=== PATIENT | female | born 1975 | race Caucasian/White ===

== ENCOUNTER 2023-09-25 10:18 | Emergency (ER) | payer OTHER, SELFPAY ==
[2023-09-25 10:19] VITALS: BP 118/79; PULSE 120; RESP 22; O2SAT 97
[2023-09-25 10:20] VITALS: BP 124/86; PULSE 109; RESP 22; TEMP 37.2; O2SAT 97; BMI 18.4
--- NOTE | 2023-09-25 10:50 | EKG12_ITS ---
Test Reason : SYNCOPE Blood Pressure : / mmHG Vent. Rate : 094 BPM Atrial Rate : 094 BPM P-R Int : 112 ms QRS Dur : 072 ms QT Int : 348 ms P-R-T Axes : 074 090 072 degrees QTc Int : 435 ms Normal sinus rhythm Rightward axis Borderline ECG Confirmed by ANANYA BARNES, ANASTASIA ([id number]), book or script editor BERNARDA GARNER ([id number]) on 09/27/2023 8:27:53 AM Referred By: Confirmed By:ANASTASIA HARE MD
--- NOTE | 2023-09-25 10:52 | EDS_ITS ---
HPI History of Present Illness Chief Complaint: Syncope Informant: patient and spouse/S.O. Onset/Context/Timing Onset: Yesterday Context: Gradual Onset Timing: Continuous Current Severity: Mild Maximum Severity: Mild Narrative Narrative: 48-year-old female no seen past medical or surgical history. Has had URI symptoms for about a week. Laryngitis. They are currently moving from [place] to [place]. They are staying with a friend or family member. Complaining of laryngitis. Yesterday felt weak and had a syncopal episode when walking to the bathroom. Denies any injuries. Also a strong smelling urine. But denies dysuria. No cardiac history. No vomiting. No diarrhea or melena. Prior similar symptoms: No Recent Illness/Hospitalization: No PFSH PFSH Medical History no medical history no medical history Home Medications ?Medication ?Instructions ?Recorded ?Last Taken ?Type sulfamethoxazole 800 1 tab PO BID 5 days #10 tabs 09/25/23 Unknown Rx mg-trimethoprim 160 mg tablet (Bactrim DS) Allergy/AdvReac Type Severity Reaction Status Date / Time No Known Allergies Allergy Verified 09/25/23 10:19 Surgical History no surgical history no surgical history Social History Smoking Status: Current every day smoker tobacco type: cigarettes ROS ROS ED ROS Narrative URI symptoms. Laryngitis. Syncopal event. Decreased appetite. Review of Systems ROS Unobtainable: Denies due to encephalopathy Constitutional Constitutional ED: Reports chills; Denies fever(s) Eyes Eyes: Denies blurry vision ENT ENT ED: Denies ear pain Cardiovascular Cardiovascular: Denies chest pain Respiratory/Chest Respiratory/Chest: Reports cough Gastrointestinal Gastrointestinal: Reports nausea; Denies abdominal pain, constipation, diarrhea, melena or vomiting Genitourinary Genitourinary ED: Denies dysuria, hematuria or urinary frequency Musculoskeletal Musculoskeletal: Denies arthralgias, back pain or myalgias Integumentary Denies abscess Neurologic Neurologic: Denies headache(s) Psychiatric Psychiatric: Denies anxiety Endocrine Endocrinology: Denies cold intolerance Hematologic/Lymphatic Hematologic/Lymphatic: Reports none Allergic/Immunologic Allergic/Immunologic ED: Denies mouth swelling, tongue swelling or urticaria EXAM Physical Exam Narrative Exam Narrative: Well-appearing 48-year-old female vital signs are stable afebrile. Pulse ox 97% on room air no hypoxia. H EENT exam pupils round react light. No signs of trauma to her face or scalp. Nontender. Moist mucous membranes. Posterior pharynx unremarkable. Neck nontender no lymphadenopathy. Lungs clear to auscultation bilaterally. Heart tachycardic rate of 115 no murmur. Chest wall and ribs nontender. Abdomen soft nontender. Moving all 4 extremities. Nontender. No edema. No cords. Neurologically she is awake alert no focal motor deficits. Back nontender. Const Vital Signs: 09/25/23 10:19 09/25/23 10:19 09/25/23 10:20 Temperature 99 F Temperature Source Temporal Pulse Rate 120 H 109 H Respiratory Rate 22 H 22 H Respiratory Effort Short of Breath Respiratory Pattern Normal Blood Pressure 118/79 124/86 H Blood Pressure Mean 92 98 Pulse Ox 97 97 Oxygen Delivery Method Room Air Room Air 09/25/23 10:50 Temperature Temperature Source Pulse Rate Respiratory Rate Respiratory Effort Respiratory Pattern Blood Pressure Blood Pressure Mean Pulse Ox Oxygen Delivery Method Room Air Positive well nourished and well developed; Negative for obese, cachectic, contractures or unkempt General Appearance ED: well developed and NAD; Negative for unkempt, cachectic, contractures, cyanotic, diaphoretic or pallor Nutritional Appearance: Negative for cachectic or obese HEENT Reports moist mucous membranes; Denies dry mucous membranes Negative for trauma or tenderness Mouth ED: No dry mucous membranes Mouth: No dry mucous membranes Eyes PERRL and EOMs intact bilaterally General Eye ED: Negative for pale conjunctiva or scleral icterus Neck no lymphadenopathy, supple and no JVD General: Negative for tenderness Lymph Lymphatic: Negative for other Chest Wall inspection of chest normal and palpation of chest normal Chest: Negative for other Resp normal respiratory effort and clear to auscultation bilaterally Effort and Inspection: Negative for retractions Auscultation: Negative for rales, rhonchi, wheezes or diminished lung sounds Cardio regular rhythm, S1 normal heart sound, S2 normal heart sound and no murmurs; Negative for regular rate Rate: tachycardic GI normal to inspection, nondistended, normoactive bowel sounds, non-tender, non- distended and no masses Inspection: Negative for abdominal distention Auscultation: normoactive bowel sounds Palpation: soft; Negative for tender, guarding or rebound tenderness present Back/Spine no CVA tenderness General Back: Negative for CVA tenderness Cervical Spine: Negative for cervical spine tenderness Thoracic Spine / Upper Back: Negative for thoracic spinal tenderness or paraspinal muscle tenderness Lumbar Spine / Lower Back: Negative for lumbar spinal tenderness Extremity normal to inspection General Extremety ED: Negative for edema or tenderness General Extremity: Negative for edema Neuro oriented x3 and CN's II-XII intact bilaterally Sensorium / Orientation: alert; Negative for orientation impaired, lethargic or stuporous Motor Exam: strength 5/5 throughout Psych mental status grossly normal Appearance: Negative for unkempt or other Attitude: No agitated Mood & Affect: Negative for depressed, anxious or tearful Skin General Skin Exam: elasticity normal; Negative for jaundice or pallor Lesions: No lesion noted Rashes: No rashes noted Trauma: Negative for abrasion Wounds: Negative for wounds noted MDM MDM MDM Narrative Medical decision making narrative: 48-year-old female no seen past medical history URI symptoms for about a week may or may not have COVID or viral syndrome. Had a syncopal episode yesterday. Exam benign. Cardiac workup along with COVID and flu. IV fluids. Repeat exam patient is doing well at 12:33 PM. She be started on Bactrim twice daily for 5 days for UTI. Treated otherwise for respiratory viral syndrome. Follow-up as needed. History & Record Review Discussion w/independent historian: Patient Additional record(s) reviewed:: No prior records Lab Data Attestation: I reviewed the patient's lab results. 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 H&H 13 and 39. Platelets 239. Chemistries show a gap of 7. Normal BUN 15 creatinine 0.7. Glucose 115. Troponin less than 3. COVID, flu and RSV negative. Chest x-ray normal. Urinalysis positive for infection. Positive nitrates. 25- 50 white cells and 3+ bacteria. Labs: Laboratory Results - last 24 hr 09/25/23 09/25/23 11:00 11:40 WBC 15.7 H RBC 4.50 Hgb 13.3 Hct 39.5 MCV 87.8 MCH 29.6 MCHC 33.7 RDW Std Deviation 45.1 H RDW Coeff of Kayy 14.0 Plt Count 239 MPV 10.9 Immature Gran % (Auto) 0.700 Neut % (Auto) 84.1 H Lymph % (Auto) 4.3 L [place] % (Auto) 10.5 H Eos % (Auto) 0.1 Baso % (Auto) 0.3 Absolute Neuts (auto) 13.2 H Absolute Lymphs (auto) 0.68 L Nucleated RBC % 0 Differential Comment COMMENT Diff Path Review May foll Sodium 136 Potassium 3.6 Chloride 106 Carbon Dioxide 23.0 Anion Gap 7 BUN 15 Creatinine 0.79 Estim Creat Clear Calc 75.75 Est GFR (MDRD) Af Amer 99 Est GFR (MDRD) Non-Af 82 BUN/Creatinine Ratio 18.9 Glucose 115 H Calcium 9.0 Troponin I High Sens < 3 L Urine Color Yellow Urine Clarity Sl. Cloudy Urine pH 6.5 Ur Specific [place] 1.010 Urine Protein 30 H Urine Glucose (UA) Normal Urine Ketones 15 H Urine Occult Blood 50 H Urine Nitrite Positive H Urine Bilirubin Negative Urine Urobilinogen 4 H Ur Leukocyte Esterase 500 H Urine RBC 0-5 SEEN Urine WBC 25-50 SEEN Ur Squamous Epith Cells 0-5 SEEN Ur Transition Epith Cell 0-5 SEEN Ur Renal Epithelial Cell 0-5 SEEN Amorphous Sediment 2+ Urine Bacteria 3+ Urine Mucus 0 SEEN Radiography Chest X-Ray - ED: 1 View, Read by ED Physician, Heart, Lungs, Mediastinum, Bony Structures, No Acute Disease and Chronic Changes Diagnostic Testing: Clinical Impression(s) from Imaging Studies Chest X-Ray 09/25/23 11:07 IMPRESSION: Normal x-ray examination of the chest. Electronically Signed: Fercho Gibson MD at 11:30 EDT Reading Location ID and State: [facility] / [place] , Service support , Chest x-ray, portable, single view interpreted both by myself and the radiologist shows no acute abnormality. Normal cardiac silhouette. Normal lung caballero. Rhythm Strip Rhythm Strip: Sinus Rhythm Rate: 94 Ectopy: None EKG Initial EKG: Attestation: I personally reviewed and interpreted this EKG as follows: Interpretation: Sinus Rhythm and No Acute Injury Pattern Comments: Normal sinus rhythm rate of 94 no acute signs of SC or ischemia. No dysrhythmia. Prior EKG tracings: not available for review Prior: No Prior Discharge Plan Triage Chief Complaint: Syncope ED Provider: Iván Singleton Dx/Rx/DC Orders Clinical Impression: UTI (urinary tract infection), Viral URI, Syncope Instructions: Urinary Tract Infections in Women, ED URI, Viral, No Abx (Adult) Prescriptions: New sulfamethoxazole-trimethoprim [Bactrim DS] 800-160 mg tablet 1 tab PO BID 5 Days Qty: 10 0RF Primary Care Provider: Care Physician,No Primary Referrals: Kobe Lopez MD [Med Staff - Sales Leader] - 1 Week if not improving Care Physician,No Primary [Primary Care Provider] - Activity Restrictions/Additional Instructions: Plenty of fluids and rest. Antibiotic Bactrim 1 pill twice a day for the next 5 days to treat your urinary tract infection. Follow-up if not improving or return if worse. Print Language: Danish Disposition Disposition: Home, Self Care
[2023-09-25] MEDS: 0.9% Normal Saline (1000mL) 1,000 ML 999 ML IV (11:01)
--- NOTE | 2023-09-25 11:07 | RAD_ITS ---
STUDY: X-RAY CHEST REASON FOR EXAM: Female, 48 years old. Chest pain TECHNIQUE: Single AP portable view of the chest. COMPARISON: None. FINDINGS: The lungs are clear and expanded. There is no demonstrated pleural abnormality. Normal size heart. Normal mediastinum and yeny. Normal visualized pulmonary arteries. Normal visualized aortic arch and descending thoracic aorta. Normal visualized thoracic spine. Normal visualized ribs, clavicles, and shoulders. There is no demonstrated abnormality of the visualized soft tissue structures of the upper abdomen. RAD/Chest 1 View (Portable) IMPRESSION: Normal x-ray examination of the chest. Electronically Signed: Fercho Gibson MD at 11:30 EDT ,
[2023-09-25] MEDS: Aspirin 81 MG TAB.CHEW 324 MG PO (11:13)
[2023-09-25 11:14] LABS: Absolute Lymphocyte Count 0.68 X10^3/uL (0.83-4.51); Absolute Neutrophil Count 13.2 X10^3/uL (2.0-7.7); Basophil# 0.05 X10^3/uL; Basophil% 0.3 % (0-1); Eosinophil# 0.01 X10^3/uL; Eosinophils% 0.1 % (0-5); Hematocrit 39.5 % (37-47); Hemoglobin 13.3 g/dL (12.0-15.0); Lymphocyte # 0.68 X10^3/ul (0.83-4.51); Lymphocyte % 4.3 % (19-41); Mean Corp Hgb Conc 33.7 g/dL (32-36); Mean Corpuscular Hgb 29.6 pg (27.0-32.0); Mean Corpuscular Volume 87.8 fL (81-99); Mean Platelet Vol. 10.9 fl (6.2-12.0); Monocyte# 1.65 X10^3/uL; Monocyte% 10.5 % (0-10); NRBC Flagged by Analyzer 0 % (0-5); Neutrophil # 13.15 X10^3/uL (2.7-7.7); Neutrophil % 84.1 % (47-70); POSITIVE DIFFERENTIAL YES; Platelet Count 239 K/mm3 (150-450); RBC Distribution Width SD 45.1 fl (35.1-43.9); White Blood Count 15.7 K/mm3 (4.4-11.0)
[2023-09-25 11:17] LABS: Differential Indicated SCAN CRITERIA MET
[2023-09-25 11:32] LABS: Anion Gap 7 (5-15); BUN 15 mg/dL (7-18); BUN/Creat Ratio 18.9 RATIO (10-20); Chloride 106 mmol/L (98-107); Creatinine, Serum 0.79 mg/dL (0.55-1.02); EST Glomerular Filtration Rate 82 mL/min (>60); Est Glom Filt Rate - Afr Amer 99 mL/min (>60); Estimated Creatinine Clearance 75.75 ml/min; Glucose 115 mg/dL (74-106); Potassium 3.6 mmol/L (3.5-5.1); Sodium Level 136 mmol/L (136-145); Troponin-I HS (w/2H Reflex) < 3 pg/mL (3.0-54.0)
[2023-09-25 11:46] LABS: Mucous, Urine 0 SEEN /hpf (<or=2+)
[2023-09-25 11:51] LABS: Color, Urine Yellow (Yellow); Glucose, Dipstick Normal (Normal); Ketone-Dipstick 15 mg/dl (Negative); Leukocyte Esterase-Dipstick 500 /ul (Negative); Nitrite-Dipstick Positive (Negative); Occult Blood-Urine 50 /ul (Negative); Protein-Dipstick 30 mg/dl (Negative); Urine Bilirubin Dipstick Negative (Negative); Urine Clarity Sl. Cloudy (Clear); Urine Urobilinogen 4 mg/dl (Normal); Urine pH 6.5 (5.0 - 8.0)
[2023-09-25 12:04] LABS: Red Blood Cells-Urine 0-5 SEEN /hpf (0-5); Squamous Epithelial Cells - UA 0-5 SEEN /hpf (5-10); White Blood Cells 25-50 SEEN /hpf (0-5)
[2023-09-25 12:05] LABS: Amorphous Sediment 2+; Bacteria 3+ /hpf (None Seen); Renal Epithelial Cells 0-5 SEEN /hpf (0-5); Transitional Epithelial - Ur 0-5 SEEN /hpf (0-5)
[2023-09-25 12:19] VITALS: BP 120/56; PULSE 88
[2023-09-25] MEDS: Smz/Tmp Ds Tablet 1 TABLET PO (12:47)
[2023-09-25 12:52] VITALS: BP 106/70; PULSE 89; RESP 16; TEMP 36.6; O2SAT 99
[2023-09-25 13:10] LABS: Reflex Troponin-HS? (from REC) Y
[2023-09-26 15:24] LABS: Pathologist Review Reviewed
== END 2023-09-25 13:00 | disposition home or self-care (01) ==
PROVIDERS: Emergency Provider Emergency Medicine; Visit Provider Emergency Medicine
DX: N39.0 Urinary tract infection, site not specified (principal); J06.9 Acute upper respiratory infection, unspecified; R55 Syncope and collapse; F17.210 Nicotine dependence, cigarettes, uncomplicated
CPT/HCPCS: 71045; 80048; 81001; 84484; 85025; 87631; 93005; 96360; 99283; J7030

== ENCOUNTER 2024-07-24 07:22 | Emergency (ER) | payer OTHER, SELFPAY ==
[2024-07-24 07:22] VITALS: BP 130/71; PULSE 75; RESP 22; TEMP 37.2; O2SAT 100; BMI 20.4
--- NOTE | 2024-07-24 07:51 | RAD_ITS ---
PROCEDURE: CHEST PA AND LATERAL 07/24/2024 REASON FOR EXAM: COUGH TECHNIQUE: Frontal and lateral views of the chest. COMPARISON: September 25, 2023 FINDINGS: Heart size and mediastinal configuration are within normal limits. There is no focal infiltrate or consolidation. There is no pneumothorax or effusion. There is no visible acute bony abnormality. There is no visible atherosclerosis. RAD/Chest PA and Lateral IMPRESSION: No acute process is identified in the chest. Reading Location: [facility]
--- NOTE | 2024-07-24 08:10 | EX.ED.DYSGE1 ---
HPI History of Present Illness Chief Complaint: Cold Sx Informant: patient Narrative Narrative: Patient is a 49-year-old female with history of tobacco use denies any significant past medical history presenting with URI symptoms. Patient dates 2 weeks ago she had a cold and was feeling better but her symptoms came back 2 days ago. She is a start with a headache and nausea as well as runny nose. Yesterday her voice became hoarse and she started to feel achy all over. She notes she has had discomfort in the center of her chest that goes to her shoulder blades. She has been more winded. Does feel short of breath talking because she is having to push the air through her throat to make sound. Has associated chills. States her cough has been nonproductive and she is taking Mucinex this morning. 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 Denies any vomiting or diarrhea. Denies any rash. Does smoke cigarettes. Came in for further evaluation and states she also needs a work note. PFSH [facility] Home Medications ?Medication ?Instructions ?Recorded ?Last Taken ?Type sulfamethoxazole 800 1 tab PO BID 5 days #10 tabs 09/25/23 Unknown Rx mg-trimethoprim 160 mg tablet (Bactrim DS) Allergy/AdvReac Type Severity Reaction Status Date / Time No Known Allergies Allergy Verified 07/24/24 07:23 Social History Smoking Status: Current every day smoker tobacco type: cigarettes ROS ROS ED Constitutional Constitutional ED: Denies chills or fever(s) ENT ENT ED: Reports rhinorrhea, sore throat and other Details: Denies sharp ear pain but does have associated ear congestion and pressure Cardiovascular Cardiovascular: Denies chest pain Respiratory/Chest Respiratory/Chest: Reports cough and dyspnea; Denies sputum Gastrointestinal Gastrointestinal: Reports nausea; Denies abdominal pain, diarrhea or vomiting Musculoskeletal Musculoskeletal: Reports back pain and myalgias Integumentary Denies rash Neurologic Neurologic: Reports headache(s); Denies paresthesias or weakness EXAM Physical Exam Const Vital Signs: 07/24/24 07:22 07/24/24 09:53 07/24/24 09:53 Temperature 99 F Temperature Source Temporal Pulse Rate 75 79 Respiratory Rate 22 H 18 Respiratory Effort Normal Respiratory Pattern Normal Blood Pressure 130/71 H Blood Pressure Mean 90 Pulse Ox 100 98 Oxygen Delivery Method Room Air Positive well nourished and well developed General Appearance ED: well developed HEENT Reports TM's clear and moist mucous membranes HEENT Narrative: Mild injection of the dependent membranes with no air-fluid level fullness. Yeah easily visualization of the osseous structures. Normal ear canals. No significant nasal congestion present. Injection/irritation of the posterior oropharynx and uvula. Uvula is midline with no edema appreciated. Normal tonsils with no edema or exudate present. Mild submental lymphadenopathy present. Hoarse voice consistent with laryngitis. No stridor appreciated. Tympanic Membrane ED: Yes TM's clear Eyes PERRL and EOMs intact bilaterally Neck supple Neck Narrative: Normal range of motion of the neck Chest Wall inspection of chest normal and palpation of chest normal Resp normal respiratory effort and clear to auscultation bilaterally Auscultation: Negative for wheezes or diminished lung sounds Cardio regular rate, regular rhythm and no murmurs GI normal to inspection, nondistended, normoactive bowel sounds and non-tender Extremity normal to inspection General Extremety ED: Negative for edema General Extremity: Negative for edema Neuro oriented x3 Sensorium / Orientation: alert Motor Exam: Negative for general weakness Psych mental status grossly normal Skin no rashes or lesions noted and no wounds MDM MDM MDM Narrative Medical decision making narrative: Patient evaluated for 2 days of recurrent URI symptoms. Vital signs largely normal. Physical exam most consistent with viral syndrome and she has some injection of her oropharynx and laryngitis on exam. Given that she was sick 2 weeks ago with another URI will obtain chest x-ray to ensure she has not developed secondary pneumonia in the setting of her myalgias. She is otherwise healthy low utility for viral testing at this time. Physical exam not consistent with strep pharyngitis and do not think she requires strep swabbing. 2 view chest x-ray viewed by myself does not show any acute process. Patient be treated symptomatically for viral syndrome. Given a work note for today and tomorrow. Discussed continued alternating ibuprofen with Tylenol cold and flu and Mucinex. Given return precautions. Encouraged follow-up with primary care doctor. Radiography Diagnostic Testing: Clinical Impression(s) from Imaging Studies Chest X-Ray 07/24/24 07:51 IMPRESSION: No acute process is identified in the chest. Reading Location: [facility] Discharge Plan Triage Chief Complaint: Cold Sx ED Provider: Dot Turk Dx/Rx/DC Orders Clinical Impression: Acute viral syndrome, Cough Instructions: ED URI, Viral, No Abx (Adult) Prescriptions: No Action sulfamethoxazole-trimethoprim [Bactrim DS] 800-160 mg tablet 1 tab PO BID 5 Days Qty: 10 0RF Stand Alone Forms: ED Work / School Excuse Primary Care Provider: Care Physician,No Primary Referrals: Care Physician,Mary Primary [Primary Care Provider] - [facility] [Non-Staff] - Activity Restrictions/Additional Instructions: Avoid smoking. Drink plenty of fluids. Take [id number] cough and cold medicine including twice a day Mucinex. Alternate ibuprofen or Tylenol for body aches. If you are here worsening please return to the emergency room. If you feel that you need it you may use the albuterol inhaler/nebulizer at home (every 4-6 hours as needed for shortness of breath, cough or wheezing). Print Language: Icelandic Disposition Disposition: Home, Self Care
[2024-07-24 09:53] VITALS: PULSE 79; RESP 18; O2SAT 98
[2024-07-24 10:27] VITALS: BP 133/84; PULSE 87; RESP 16; TEMP 36.4; O2SAT 98
== END 2024-07-24 10:28 | disposition home or self-care (01) ==
PROVIDERS: Emergency Provider Emergency Medicine; Visit Provider Emergency Medicine
DX: B34.9 Viral infection, unspecified (principal); F17.210 Nicotine dependence, cigarettes, uncomplicated; R05.9 Cough, unspecified
CPT/HCPCS: 71046; 99282

== ENCOUNTER 2024-11-28 15:30 | Emergency (ER) | payer OTHER, SELFPAY ==
[2024-11-28 15:30] VITALS: BP 124/82; PULSE 73; RESP 16; TEMP 36.9; O2SAT 95; BMI 20.2
--- NOTE | 2024-11-28 16:24 | ED.VIS.DENTA ---
HPI History of Present Illness Chief Complaint: Dental Narrative Narrative: 49-year-old female presents wanting stronger antibiotics and stronger ibuprofen for dental pain that she has had for the last week. She states she is awaiting for her dental insurance to kick in to actually see a dentist. She has had problems with her teeth previously. She has numerous carious teeth but she is complaining of pain in the upper 4 front teeth mainly. She is a smoker. She denies any fevers or chills, no exacerbating or alleviating factors. PFSH PFSH Home Medications ?Medication ?Instructions ?Recorded ?Last Taken ?Type clindamycin HCl 300 mg capsule 300 mg PO Q6H #40 CAPSULES 11/28/24 Unknown Rx (Cleocin HCl) ibuprofen 800 mg tablet 800 mg PO Q8H PRN pain #20 tabs 11/28/24 Unknown Rx Allergy/AdvReac Type Severity Reaction Status Date / Time No Known Allergies Allergy Verified 11/28/24 15:33 Social History Smoking Status: Current every day smoker tobacco type: cigarettes ROS ROS ED ROS Narrative Review of systems positive for dental pain in the upper jaw mainly the for front teeth. No fevers or chills, tender to touch, no facial swelling or redness. No difficulty swallowing. EXAM Physical Exam Narrative Exam Narrative: Afebrile. Vital signs noted. Nontoxic-appearing. Focused examination of the mouth does show numerous dental caries mainly in the 4 front teeth. There is mild swelling of the gingiva, but no fluctuant abscess. No swelling of the face or erythema of the upper lip. Airway patent. No drooling or trismus. Const Vital Signs: 11/28/24 15:30 Temperature 98.5 F Temperature Source Oral Pulse Rate 73 Respiratory Rate 16 Blood Pressure 124/82 H Blood Pressure Mean 96 Pulse Ox 95 MDM MDM MDM Narrative Medical decision making narrative: Patient states that she is here for antibiotics, and higher strength ibuprofen. I wrote her prescription for ibuprofen 800 to take 3 times a day #20 and for clindamycin 4 times a day for the next 10 days. Smoking cessation was discussed. I do not feel that she has a gingival abscess that requires drainage. She will follow-up with a dentist to soon as possible. Return instructions to the emergency department were reviewed. Disposition is discharged home in stable condition. History & Record Review Additional record(s) reviewed:: Prior ED visit (Noncontributory to current chief complaint) Discharge Plan Triage Chief Complaint: Dental ED Provider: Jose Fink Dx/Rx/DC Orders Clinical Impression: Pain, dental, Dental abscess, Dental caries Instructions: ED Dental Pain, ED Dental Cavity, ED Dental Abscess Prescriptions: New ibuprofen 800 mg tablet 800 mg PO Q8H PRN (Reason: pain) Qty: 20 0RF clindamycin HCl [Cleocin HCl] 300 mg capsule 300 mg PO Q6H Qty: 40 0RF Primary Care Provider: Care Physician,No Primary Referrals: Care Physician,No Primary [Primary Care Provider, Medical] Activity Restrictions/Additional Instructions: Follow-up with a dentist as soon as possible. Stop smoking. Antibiotics as directed. Return with fever, swelling of face, new or worsening symptoms. Print Language: Cymraes Disposition Disposition: Home, Self Care
[2024-11-28 16:35] VITALS: BP 120/80; PULSE 71; RESP 18; TEMP 36.3; O2SAT 98
--- OUTSIDE RECORDS SUMMARY | 2024-11-28 19:01 | XMS RPT_ITS | CCD ---
Author Organization [facility] Inform ion Partnership SUSTAINABILITY PROJECT COORDINATOR [facility] Care Team Providers Care Rand Butter Name Role Phone Care Physician, No Primary Primary Care Provider Unavailable Dr. Dot Turk DO Emergency Provider [phone] Care Physician, No Primary Referring Unava ilable Care Physician, No Primary Primary Care Unava ilable Paresh Germain Attending Unavailable Dot Turk Attending Unavailable Care Physician, No Primary Primary Care Unava ilable Care Physician, No Primary Primary Care Unava ilable Iván Singleton Attending Unavailable Care Physician, No Primary Referring Unava ilable Marko Shaw Attending Unavailable Care Physician, No Primary Primary Care Unava ilable Medications Current Medications Medication Drug Class(es) Dates Sig (Normalized) Sig (Original) sulfamethoxazole 800 mg / trimethoprim 160 mg oral tablet (1 source) Dihydrofolate Reductase Inhibitor Antibacterial, Sulfonamide Antimicrobial Start: 09-25-2023 Sulfamethoxazole -Trimethoprim (Bactrim Ds) 800-160 mg tablet Active 1 {tbl} PO TWICE A DAY 10 September 25, 2023 12:00am Problems Active Problems Problem Classification Problem Date Documented Da te Episodic/Chronic Administrative/social admission (1 source) Patient encounter status; Translations: [Encounter for pre-employment examination] 11-10-2023 Episodic Other lower respiratory disease (1 source) Cough; Translations: [Cough] 07-24-2024 Episodic Other upper respiratory infections (1 source) Viral upper respiratory tract infection; Translations: [Acute upper respiratory infection, unspecified] 10-03-2023 Episodic Urinary tract infections (1 source) Urinary tract infectious disease; Translations: [Urinary tract infection, site not specified] 10-03-2023 Episodic Viral infection (2 sources) Acute viral disease; Translations: [Viral infection, unspecified] Onset: 07-26-2024 07-24-2024 Episodic Past or Other Problems Problem Classification Problem Date Documented Da te Episodic/Chronic Syncope (2 sources) Syncope; Translations: [Syncope and collapse] Onset: 04-20-2024 10-03-2023 Episodic Results Test Name Value Interpretation Reference Range Facil ity Chest PA and Lateralon 07-24 Chest PA and Lateral [facility] [address] [place] [address] Chest PA and Lateral MR#: [id number] Acct: [id number] Name: GLENN ABARCAVENKAT MILLER Rep #: [id number] : 1975 F 49 From: Bc Reza MD PCP: Care Physician,No Primary Status: REG ER Study: Chest PA and Lateral Date of Exam: 07/24/24 Exam# [id number] Ordering Dr: Dot Turk DO PROCEDURE: CHEST PA AND LATERAL 07/24/2024 REASON FOR EXAM: COUGH TECHNIQUE: Frontal and lateral views of the chest. COMPARISON: September 25, 2023 FINDINGS: Heart size and mediastinal configuration are within normal limits. There is no focal infiltrate or consolidation. There is no pneumothorax or effusion. There is no visible acute bony abnormality. There is no visible atherosclerosis. RAD/Chest PA and Lateral IMPRESSION: No acute process is identified in the chest. Reading Location: [facility] CC: Dr. Dot Turk DO; No Primary Care Physician Radiation Therapy Technician: Signed Normal [facility] Emergency Department Summary on 07-24-2024 Emergency Department Summary [facility] Medical Records Department [address] [place] [address] Emergency Department Summary 07/24/24 MR#: [id number] Acct: [id number] Name: FATOU ABARCA ANGELA Rep #: [id number] : 1975 49 From: Dot Turk DO PCP: Care Physician,No Primary Status:REG ER Location: ED HPI History of Present Illness Chief Complaint: Cold Sx Informant: patient Narrative Narrative: Patient is a 49-year-old female with history of tobacco use denies any significant past medical history presenting with URI symptoms. Patient dates 2 weeks ago she had a cold and was feeling better but her symptoms came back 2 days ago. She is a start with a headache and nausea as well as runny nose. Yesterday her voice became hoarse and she started to feel achy all over. She notes she has had discomfort in the center of her chest that goes to her shoulder blades. She has been more winded. Does feel short of breath talking because she is having to push the air through her throat to make sound. Has associated chills. States her cough has been nonproductive and she is taking Mucinex this morning. 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 Denies any vomiting or diarrhea. Denies any rash. Does smoke cigarettes. Came in for further evaluation and states she also needs a work note. PFSH PFSH Home Medications ???Medication ???Instructions ???Recorded ???Last Taken ???Type sulfamethoxazole 800 1 tab PO BID 5 days #10 tabs 09/24 Unknown Rx mg-trimethoprim 160 mg tablet (Bactrim DS) Allergy/AdvReac Type Severity Reaction Status Date / Time No Known Allergies Allergy Verified 07/24/24 07:23 Social History Smoking Status: Current every day smoker tobacco type: cigarettes ROS ROS ED Constitutional Constitutional ED: Denies chills or fever(s) ENT ENT ED: Reports rhinorrhea, sore throat and other Details: Denies sharp ear pain but does have associated ear congestion and pressure Cardiovascular Cardiovascular: Denies chest pain Respiratory/Chest Respiratory/Chest: Reports cough and dyspnea; Denies sputum Gastrointestinal Gastrointestinal: Reports nausea; Denies abdominal pain, diarrhea or vomiting Musculoskeletal Musculoskeletal: Reports back pain and myalgias Integumentary Denies rash Neurologic Neurologic: Reports headache(s); Denies paresthesias or weakness EXAM Physical Exam Const Vital Signs: 07/24/24 07:22 07/24/24 09:53 07/24/24 09:53 Temperature 99 F Temperature Source Temporal Pulse Rate 75 79 Respiratory Rate 22 H 18 Respiratory Effort Normal Respiratory Pattern Normal Blood Pressure 130/71 H Blood Pressure Mean 90 Pulse Ox 100 98 Oxygen Delivery Method Room Air Positive well nourished and well developed General Appearance ED: well developed HEENT Reports TM's clear and moist mucous membranes HEENT Narrative: Mild injection of the dependent membranes with no air-fluid level fullness. Yeah easily visualization of the osseous structures. Normal ear canals. No significant nasal congestion present. Injection/irritation of the posterior oropharynx and uvula. Uvula is midline with no edema appreciated. Normal tonsils with no edema or exudate present. Mild submental lymphadenopathy present. Hoarse voice consistent with laryngitis. No stridor appreciated. Tympanic Membrane ED: Yes TM's clear Eyes PERRL and EOMs intact bilaterally Neck supple Neck Narrative: Normal range of motion of the neck Chest Wall inspection of chest normal and palpation of chest normal Resp normal respiratory effort and clear to auscultation bilaterally Auscultation: Negative for wheezes or diminished lung sounds Cardio regular rate, regular rhythm and no murmurs GI normal to inspection, nondistended, normoactive bowel sounds and non-tender Extremity normal to inspection General Extremety ED: Negative for edema General Extremity: Negative for edema Neuro oriented x3 Sensorium / Orientation: alert Motor Exam: Negative for general weakness Psych mental status grossly normal Skin no rashes or lesions noted and no wounds MDM MDM MDM Narrative Medical decision making narrative: Patient evaluated for 2 days of recurrent URI symptoms. Vital signs largely normal. Physical exam most consistent with viral syndrome and she has some injection of her oropharynx and laryngitis on exam. Given that she was sick 2 weeks ago with another URI will obtain chest x-ray to ensure she has not developed secondary pneumonia in the setting of her myalgias. She is otherwise healthy low utility for viral testing at this time. Physical exam not consistent with strep pharyngitis and do not think she requires strep swabbing. 2 view chest x-ray viewed by myself d (more content not included)... Normal [facility] Office Visit Reporton 2023 Office Visit Report [facility] [address] 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 Allergies No Known Allergies Allergy (Verified 09/25/23 10:19) Office Procedures [facility] Billing Sheet Testing Breath Alcohol in [facility]: Yes Pre-Employment Drug Screen: Yes 12/14/23 0652 Date Paresh Prajapati Signature: Date (if applicable) CC: Normal [facility] Office Visit Reporton 2023 Office Visit Report [facility] [address] [place] [address] OFFICE VISIT Date of Service: 10/19/23 MR#: [id number] Acct: [id number] Patient: FATOU ABARCA Rep #: [id number] : 1975 Provider: EDEL Tucker Age/Sex: 48/F [place] [facility] [place] Status: Signed Intake Vital Signs 09/25/23 10:20 Height 5 ft 8 in Intake Visit Reasons: PRE EMP/NON DOT/DRUG SCREEN/PRC S[place] Allergies No Known Allergies Allergy (Verified 09/25/23 10:19) Office Procedures [facility] Billing Sheet Testing Pre-Employment Drug Screen: Yes 12/19/23 1126 Date Marko Prajapati Signature: Date (if applicable) CC: Normal [facility] Urgent Care Visit Reporton 0 11-10-2023 Urgent Care Visit Report [facility] [address], [address] [place] [address] OFFICE VISIT Date of Service: 11/10/23 MR#: [id number] Acct: [id number] Name: FATOU ABARCA Rep #: [id number] : 1975 Provider: EDEL Cross Age/Sex: 48/F [place] [facility] [place] Status: Signed Intake Vital Signs 09/25/23 10:20 Height 5 ft 8 in Intake Visit Reasons: PE 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 Please see corresponding scanned documents with today's date. Office Procedures Physical Exam Coding PE Coding Pre-employment PE: Yes Coding Level of Care Code No Charge Diagnoses Encounter for pre-employment health screening examination Z02.1 Assessment and Plan Assessment and Plan (1) Encounter for pre-employment health screening examination: Status: Acute 11/10/23 1321 Date Paresh Delgadoignscot Signature: Date (if applicable) CC: Normal [facility] CBC W/Diff, Automatedon 09-05 PATH REV Reviewed Normal [facility] Comment on above: Result Comment: Neut rophilic leukocytosis. Clinical correlation necessary. Albert Vega M.D. 09/26/23 AMENDED REPORT 09/26/23 1524 PATH REV previously reported as: July frankie Performed By: #### L 500.2500, L501.5425, L100.0100 #### [facility] Laboratory [address] [place], [place], [address] 12 Lead EKGon 09-25-2023 12 Lead EKG [facility] [address] [place] [address] 12 Lead EKG 09/25/23 1056 MR#: [id number] Acct: [id number] Name: FATOU ABARCA Rep #: [id number] : 1975 48 From: Kj Quan MD Attending Dr: Status: DEP ER Ordering Dr: Iván Singleton MD Date: 09/25/23 Location: ED Sex: F C Admitted: Test Reason : SYNCOPE Blood Pressure : / mmHG Vent. Rate : 094 BPM Atrial Rate : 094 BPM P-R Int : 112 ms QRS Dur : 072 ms QT Int : 348 ms P-R-T Axes : 074 090 072 degrees QTc Int : 435 ms Normal sinus rhythm Rightward axis Borderline ECG Confirmed by ANANYA BARNES, KJ ([id number]), editor & co founder BERNARDA GARNER ([id number]) on 09/27/2023 8:27:53 AM Referred By: Confirmed By:KJ QUAN MD 09/27/23826 Date Kj Quan MD CC: Dr. Iván Singleton MD; No Primary Care Physician Signed Normal [facility] Basic Metabolic Profile (BMP )on 09-25-2023 BUN/CRE 18.9 RATIO Normal 10-20 [facility] Comment on above: Order Comment: 1 Y Performed By: #### L 500.2500, L501.5425, L100.0100 #### [facility] Laboratory [address] [place], [address] CA,Total 9.0 mg/dL Normal 8.5-10.1 [facility] Comment on above: Order Comment: 1 Y Performed By: #### L 500.2500, L501.5425, L100.0100 #### [facility] [address] [place], [address] Chloride [Moles/Vol] 106 mmol/L Normal 98-107 [facility] Comment on above: Order Comment: 1 Y Performed By: #### L 500.2500, L501.5425, L100.0100 #### [facility] [address] [place], [address] CO2 [Moles/Vol] 23.0 mmol/L Normal 21.0-32.0 [facility] Comment on above: Order Comment: 1 Y Performed By: #### L 500.2500, L501.5425, L100.0100 #### [facility] [address] [place], [address] Creatinine [Mass/Vol] 0.79 mg/dL Normal 0.55-1.02 [facility] Comment on above: Order Comment: 1 Y Result Comment: The validity of the calculated GFR GFRAA in patients over 70 years has not been determined. Clinical correlation is essential. Performed By: #### L 500.2500, L501.5425, L100.0100 #### [facility] [address] [place], [address] ECRCL 75.75 ml/min Normal [facility] Comment on above: Order Comment: 1 Y Performed By: #### L 500.2500, L501.5425, L100.0100 #### [facility] [address] [place], [address] EST GFR - AA 99 mL/min Normal >60 [facility] Comment on above: Order Comment: 1 Y Result Comment: Afri can Bhutanese GFR Calc Performed By: #### L 500.2500, L501.5425, L100.0100 #### [facility] [address] [place], [address] GAP 7 Normal 5-15 [facility] Comment on above: Order Comment: 1 Y Performed By: #### L 500.2500, L501.5425, L100.0100 #### [facility] [address] [place], [address] GFR/1.73 sq M.predicted among non-blacks MDRD (S/P/Bld) [Vol rate/Area] 82 mL/min/{1.73_m2} Normal >60 [facility] Comment on above: Order Comment: 1 Y Result Comment: Non- GFR Calc Performed By: #### L 500.2500, L501.5425, L100.0100 #### [facility] [address] [place], [address] Glucose [Mass/Vol] 115 mg/dL High 74-106 [facility] Comment on above: Order Comment: 1 Y Result Comment: Fast ing Glucose result from 100 to 125 mg/dL suggests IMPAIRED HOMEOSTASIS per A.D.A. criteria. Performed By: #### L 500.2500, L501.5425, L100.0100 #### [facility] [address] [place], [address] Potassium [Moles/Vol] 3.6 mmol/L Normal 3.5-5.1 [facility] Comment on above: Order Comment: 1 Y Performed By: #### L 500.2500, L501.5425, L100.0100 #### [facility] [address] [place], [address] Sodium [Moles/Vol] 136 mmol/L Normal 136-145 [facility] Comment on above: Order Comment: 1 Y Performed By: #### L 500.2500, L501.5425, L100.0100 #### [facility] [address] [place], [address] Urea nitrogen [Mass/Vol] 15 mg/dL Normal 7-18 [facility] Comment on above: Order Comment: 1 Y Performed By: #### L 500.2500, L501.5425, L100.0100 #### [facility] Laboratory [address] [facility] [place], [address] Chest 1 View (Portable)on Chest 1 View (Portable) [facility] Imaging Services [address] [place] [address] Chest 1 View (Portable) MR#: [id number] Acct: [id number] Name: FATOU ABARCA Rep #: [id number] : 1975 F 48 From: Fercho Gibson MD PCP: Status: PRE ER Study: Chest 1 View (Portable) Date of Exam: 09/25/23 Exam# [id number] Ordering Dr: Iván Singleton MD [id number] STUDY: X-RAY CHEST REASON FOR EXAM: Female, 48 years old. Chest pain TECHNIQUE: Single AP portable view of the chest. COMPARISON: None. FINDINGS: The lungs are clear and expanded. There is no demonstrated pleural abnormality. Normal size heart. Normal mediastinum and yeny. Normal visualized pulmonary arteries. Normal visualized aortic arch and descending thoracic aorta. Normal visualized thoracic spine. Normal visualized ribs, clavicles, and shoulders. There is no demonstrated abnormality of the visualized soft tissue structures of the upper abdomen. RAD/Chest 1 View (Portable) IMPRESSION: Normal x-ray examination of the chest. Electronically Signed: Fercho Gibson MD at 11:30 EDT , CC: Dr. Iván Singleton MD Radiation Therapy Technician: Signed Normal [facility] Emergency Department Summary on 09-25-2023 Emergency Department Summary [facility] Medical Records Department [address] [place] [address] Emergency Department Summary 09/25/23 MR#: [id number] Acct: [id number] Name: FATOU ABARCA Rep #: [id number] : 1975 48 From: Iván Singleton MD PCP: Care Physician,No Primary Status:DEP ER Location: ED HPI History of Present Illness Chief Complaint: Syncope Informant: patient and spouse/S.O. Onset/Context/Timing Onset: Yesterday Context: Gradual Onset Timing: Continuous Current Severity: Mild Maximum Severity: Mild Narrative Narrative: 48-year-old female no seen past medical or surgical history. Has had URI symptoms for about a week. Laryngitis. They are currently moving from [place] to [place]. They are staying with a friend or family member. Complaining of laryngitis. Yesterday felt weak and had a syncopal episode when walking to the bathroom. Denies any injuries. Also a strong smelling urine. But denies dysuria. No cardiac history. No vomiting. No diarrhea or melena. Prior similar symptoms: No Recent Illness/Hospitalizatio n: No PFSH PFSH Medical History no medical history no medical history Home Medications ???Medication ???Instructions ???Recorded ???Last Taken ???Type sulfamethoxazole 800 1 tab PO BID 5 days #10 tabs 09/25/23 Unknown Rx mg-trimethoprim 160 mg tablet (Bactrim DS) Allergy/AdvReac Type Severity Reaction Status Date / Time No Known Allergies Allergy Verified 09/25/23 10:19 Surgical History no surgical history no surgical history Social History Smoking Status: Current every day smoker tobacco type: cigarettes ROS ROS ED ROS Narrative URI symptoms. Laryngitis. Syncopal event. Decreased appetite. Review of Systems ROS Unobtainable: Denies due to encephalopathy Constitutional Constitutional ED: Reports chills; Denies fever(s) Eyes Eyes: Denies blurry vision ENT ENT ED: Denies ear pain Cardiovascular Cardiovascular: Denies chest pain Respiratory/Chest Respiratory/Chest: Reports cough Gastrointestinal Gastrointestinal: Reports nausea; Denies abdominal pain, constipation, diarrhea, melena or vomiting Genitourinary Genitourinary ED: Denies dysuria, hematuria or urinary frequency Musculoskeletal Musculoskeletal: Denies arthralgias, back pain or myalgias Integumentary Denies abscess Neurologic Neurologic: Denies headache(s) Psychiatric Psychiatric: Denies anxiety Endocrine Endocrinology: Denies cold intolerance Hematologic/Lymphatic Hematologic/Lymphatic: Reports none Allergic/Immunologic Allergic/Immunologic ED: Denies mouth swelling, tongue swelling or urticaria EXAM Physical Exam Narrative Exam Narrative: Well-appearing 48-year-old female vital signs are stable afebrile. Pulse ox 97% on room air no hypoxia. H EENT exam pupils round react light. No signs of trauma to her face or scalp. Nontender. Moist mucous membranes. Posterior pharynx unremarkable. Neck nontender no lymphadenopathy. Lungs clear to auscultation bilaterally. Heart tachycardic rate of 115 no murmur. Chest wall and ribs nontender. Abdomen soft nontender. Moving all 4 extremities. Nontender. No edema. No cords. Neurologically she is awake alert no focal motor deficits. Back nontender. Const Vital Signs: 09/25/23 10:19 09/25/23 10:19 09/25/23 10:20 Temperature 99 F Temperature Source Temporal Pulse Rate 120 H 109 H Respiratory Rate 22 H 22 H Respiratory Effort Short of Breath Respiratory Pattern Normal Blood Pressure 118/79 124/86 H Blood Pressure Mean 92 98 Pulse Ox 97 97 Oxygen Delivery Method Room Air Room Air 09/25/23 10:50 Temperature Temperature Source Pulse Rate Respiratory Rate Respiratory Effort Respiratory Pattern Blood Pressure Blood Pressure Mean Pulse Ox Oxygen Delivery Method Room Air Positive well nourished and well developed; Negative for obese, cachectic, contractures or unkempt General Appearance ED: well developed and NAD; Negative for unkempt, cachectic, contractures, cyanotic, diaphoretic or pallor Nutritional Appearance: Negative for cachectic or obese HEENT Reports moist mucous membranes; Denies dry mucous membranes Negative for trauma or tenderness Mouth ED: No dry mucous membranes Mouth: No dry mucous membranes Eyes PERRL and EOMs intact bilaterally General Eye ED: Negative for pale conjunctiva or scleral icterus Neck no lymphadenopathy, supple and no JVD General: Negative for tenderness Lymph Lymphatic: Negative for other Chest Wall inspection of chest normal and palpation of chest normal Chest: Negative for other Resp normal respiratory effort and clear to auscultation bilaterally Effort and Inspection: Negative for retractions Auscultation: Neg (more content not included)... Normal [facility] L501.5425on 09-25-2023 TROPONIN-I HS < 3 Low 3.0-54.0 [facility] Comment on above: Order Comment: 1 Y Result Comment: Wilfrid delarosa Note: New Test Units and Gender Specific Reference Ranges. For more information see Policy Stat Procedure [place] High Sensitivity Troponin (TNIH) and attachments. Performed By: #### L 500.2500, L501.5425, L100.0100 #### [facility] [address] [place], [address] M100.678on 09-25-2023 M100.678 SARS-CoV-2 (COVID 19 ) Negative INFLUENZA A Negative INFLUENZA B Negative RSV PCR Negative Normal [facility] Comment on above: Performed By: #### L 400.0001, M100.678 #### [facility] [address] [place], [address] Urinalysis, Completeon 09-24 AMORPHOUS 2+ Normal [facility] Comment on above: Order Comment: COLLE CTOR TO SPECIFY Performed By: #### L 400.0001, M100.678 #### [facility] [facility] [address] [place], [address] BACTERIA 3+ /hpf Normal None Seen [facility] Comment on above: Order Comment: COLLE CTOR TO SPECIFY Performed By: #### L 400.0001, M100.678 #### [facility] [address] [place], [address] EPI,RENAL 0-5 SEEN Normal 0-5 [facility] Comment on above: Order Comment: COLLE CTOR TO SPECIFY Performed By: #### L 400.0001, M100.678 #### [facility] [address] [place], [address] EPI,TRANSITION 0-5 SEEN Normal 0-5 [facility] Comment on above: Order Comment: COLLE CTOR TO SPECIFY Performed By: #### L 400.0001, M100.678 #### [facility] [address] [place], [address] EPI,SQUAMOUS 0-5 SEEN Normal 5-10 [facility] Comment on above: Order Comment: COLLE CTOR TO SPECIFY Performed By: #### L 400.0001, M100.678 #### [facility] [address] [place], [address] RBC 0-5 SEEN Normal 0-5 [facility] Comment on above: Order Comment: COLLE CTOR TO SPECIFY Performed By: #### L 400.0001, M100.678 #### [facility] [address] [place], [address] WBC 25-50 SEEN Normal 0-5 [facility] Comment on above: Order Comment: COLLE CTOR TO SPECIFY Performed By: #### L 400.0001, M100.678 #### [facility] [address] [place], [address] Mucus Ql (Urine sed) 0 SEEN Normal [facility] Comment on above: Order Comment: COLLE CTOR TO SPECIFY Performed By: #### L 400.0001, M100.678 #### [facility] [address] [place], [address] Vital Signs Date Time Vital Sign Value Performing Clinician Marlena davison 07-24-2024 10:27-0400 Body temperature 97.6 [degF] No Primary Care Physician [facility] 07-24-2024 10:27-0400 Diastolic blood pressure 84 mm[Hg] No Primary Care Physician [facility] 07-24-2024 10:27-0400 Heart rate 87 /min No Primary Care Physician [facility] 07-24-2024 10:27-0400 Respiratory rate 16 /min No Primary Care Physician [facility] 07-24-2024 10:27-0400 SaO2% (BldA) [Mass fraction] 98 % No Primary Care Physician [facility] 07-24-2024 10:27-0400 Systolic blood pressure 133 mm[Hg] No Primary Care Physician [facility] 07-24-2024 07:22-0400 Body height 170.18 cm No Primary Care Physician [facility] 07-24-2024 07:22-0400 Body mass index (BMI) [Ratio] 20.4 kg/m2 No Primary Care Physician [facility] 07-24-2024 07:22-0400 Body weight 59.1 kg No Primary Care Physician [facility] Encounters Encounter Date Encounter Type Care Provider Facility Start: 07-24-2024 End: 07-24-2024 Emergency department patient visit No Primary Care Physician -Emergency Department Work Phone: Start: 11-10-2023 End: 11-10-2023 ambulatory No Primary Care Physician Facility:[facility] Start: 10-19-2023 End: 10-19-2023 ambulatory No Primary Care Physician Facility:[facility] Start: 09-25-2023 End: 09-25-2023 Emergency department patient visit No Primary Care Physician Facility:[facility] Procedures Date Procedure Procedure Detail Performing Clinician Start: 07-24-2024 X-ray of chest, PA a nd lateral views No Primary Care Physician Plan of Treatment Date Care Activity Detail Author Start: 07-24-2024 End: 07-24-2024 [facility] Patient Education ED URI, Viral, No Abx (Adult) [facility] Work Phone: Patient referral [facility] Work Phone: Payers Date Payer Category Payer Self-pay 2023 Unknown [id number] Unknown [id number] Unknown [id number] Unknown [id number] [id number] Unknown [id number] [id number] [id number] Unknown [id number] Social History Date Type Detail Facility Start: 07-24-2024 [facility] Start: 1975 Sex Assigned At Female W [facility] Mental Status Date Assessment Result Facility 07-24-2024 Cognitive function Level Of Cons ciousness Awake;Alert;Appropriate;Follow s Commands [facility] Work Phone: Discharge summary 07-24-2024 Note Date & Type Note Facility 07-24-2024 Discharge summary [facility] Radiology Diagnostic study note 07-24-2024 Note Date & Type Note Facility 07-24-2024 Radiology Diagnostic study note [facility] Imaging Services [address] [place] [address] Chest PA and Lateral MR#: [id number] Acct: [id number] Name: FATOU ABARCA Rep #: [id number] : 1975 F 49 From: John Reza MD PCP: Care Physician,No Primary Status: REG ER Study:Chest PA and Lateral Date of Exam: 07/24/24 Exam# [id number] Ordering Dr: Carrie Turk DO PROCEDURE: CHEST PA AND LATERAL 07/24/2024 REASON FOR EXAM: COUGH TECHNIQUE: Frontal and lateral views of the chest. COMPARISON: September 25, 2023 FINDINGS: Heart size and mediastinal configuration are within normal limits. There is no focal infiltrate or consolidation. There is no pneumothorax or effusion. There is no visible acute bony abnormality. There isno visible atherosclerosis. RAD/Chest PA and Lateral IMPRESSION: No acute process is identified in the chest. Reading Location: [facility] CC: Dr. Dot Turk DO; No Primary Care Physician ~ Radiation Therapy Technician: Signed [facility] Discharge instructions 07-24-2024 Note Date & Type Note Facility 07-24-2024 Hospital Discharg e instructions Additional Instructions Avoid smoking. Drink plenty of fluids. Take vxlo-ghb-btidcjr cough and cold medicine including twice a day Mucinex. Alternate ibuprofen or Tylenol for body aches. If you are here worsening please return to the emergency room. If you feel that you need it you may use the albuterol inhaler/nebulizer at home (every 4-6 hours as needed for shortness of breath, cough or wheezing). [facility] Work Phone: Discharge summary Note Date & Type Note Facility Discharge summary Note Date/Time July 24, 2024 10:13am [facility] Medical Records Department [address] [place] [address] Emergency Department Summary 07/24/24 MR#: [id number] Acct: [id number] Name: FATOU ABARCA Rep #:[id number] : 1975 49 From: Dot Ibarra PCP: Care Physician,No Primary Status :REG ER Location: ED HPI History of Present Illness Chief Complaint: Cold Sx Informant: patient Narrative Narrative: Patient is a 49-year-old female with history of tobacco use denies any significant past medical history presenting with URI symptoms. Patient dates 2 weeks ago she had a cold and was feeling better but her symptoms came back 2 days ago. She is a start with a headache and nausea as well as runny nose. Yesterday her voice became hoarse and she started to feel achy all over. She notes she has had discomfort in the center of her chest that goes to her shoulder blades. She has been more winded. Does feel short of breath talking because she is having to push the air through her throat to make sound. Has associated chills. States her cough has been nonproductive and she is taking Mucinex this morning. 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 Denies any vomiting or diarrhea. Denies any rash. Does smoke cigarettes. Came in for further evaluation and states she also needs a work note. PFSH PFS Home Medications ?Medication ?Instructions ?Recorded ?Last Taken ?Type sulfamethoxazole 800 1 tab PO BID 5 days #10 tabs 09/25/23 Unknown Rx mg-trimethoprim 160 mg tablet (Bactrim DS) Allergy/AdvReac Type Severity Reaction Status Date / Time No Known Allergies Allergy Verified 07/24/24 07:23 Social History Smoking Status: Current every day smoker tobacco type: cigarettes ROS ROS ED Constitutional Constitutional ED: Denies chills or fever(s) ENT ENT ED: Reports rhinorrhea, sore throat and other Details: Denies sharp ear painbut does have associated ear congestion and pressure Cardiovascular Cardiovascular: Denies chest pain Respiratory/Chest Respiratory/Chest: Reports cough and dyspnea; Denies sputum Gastrointestinal Gastrointestinal: Reports nausea; Denies abdominal pain, diarrhea or vomiting Musculoskeletal Musculoskeletal: Reports back pain and myalgias Integumentary Denies rash Neurologic Neurologic: Reports headache(s); Denies paresthesias or weakness EXAM Physical Exam Const Vital Signs: 07/24/24 07:22 07/24/24 09:53 07/24/24 09:53 Temperature 99 F Temperature Source Temporal Pulse Rate 75 79 Respiratory Rate 22 H 18 Respiratory Effort Normal Respiratory Pattern Normal Blood Pressure 130/71 H Blood Pressure Mean 90 Pulse Ox 100 98 Oxygen Delivery Method Room Air Positive well nourished and well developed General Appearance ED: well developed HEENT Reports TM's clear and moist mucous membranes HEENT Narrative: Mild injection of the dependent membranes with no air-fluid level fullness. Yeah easily visualization of the osseous structures. Normal ear canals. No significant nasal congestion present. Injection/irritation of the posterior oropharynx and uvula. Uvula is midline with no edema appreciated. Normal tonsils with no edema or exudate present. Mild submental lymphadenopathy present. Hoarse voice consistent with laryngitis. No stridor appreciated. Tympanic Membrane ED: Yes TM's clear Eyes PERRL and EOMs intact bilaterally Neck supple Neck Narrative: Normal range of motion of the neck Chest Wall inspection of chest normal and palpation of chest normal Resp normal respiratory effort and clear to auscultation bilaterally Auscultation: Negative for wheezes or diminished lung sounds Cardio regular rate, regular rhythm and no murmurs GI normal to inspection, nondistended, normoactive bowel sounds and non-tender Extremity normal to inspection General Extremety ED: Negative for edema General Extremity: Negative for edema Neuro oriented x3 Sensorium / Orientation: alert Motor Exam: Negative for general weakness Psych mental status grossly normal Skin no rashes or lesions noted and no wounds MDM MDM MDM Narrative Medical decision making narrative: Patient evaluated for 2 days of recurrent URI symptoms. Vital signs largely normal. Physical exam most consistent with viral syndrome and she has some injection of her oropharynx and laryngitis on exam. Given that she was sick 2 weeks ago with another URI will obtain chest x-ray to ensure she has not developed secondary pneumonia in the setting of her myalgias. She is otherwise healthy low utility for viral testing at this time. Physical exam not consistent with strep pharyngitis and do not think she requires strep swabbing. 2 view chest x-ray viewed by myself does not show any acute process. Patient be treated symptomatically for viral syndrome. Given a work note for today and tomorrow. Discussed continued alternating ibuprofen with Tylenol coldand flu and Mucinex. Given return precautions. Encouraged follow-up with primary care doctor. Radiography Diagnostic Testing: Clinical Impression(s) from Imaging Studies Chest X-Ray 07/24/24 07:51 IMPRESSION: No acute process is identified in the chest. Reading [facility] Discharge Plan Triage Chief Complaint: Cold Sx ED Provider: Dot Turk Dx/Rx/DC Orders Clinical Impression: Acute viral syndrome, Cough Instructions: ED URI, Viral, No Abx (Adult) Prescriptions: No Action sulfamethoxazole-trimethoprim [Bactrim DS] 800-160 mg tablet 1 tab PO BID 5 Days Qty: 10 0RF Stand Alone Forms: ED Work / School Excuse Primary Care Provider: Care Physician,No Primary Referrals: Care Physician,Mary Primary [Primary Care Provider] - [facility] [Non-Staff] - Activity Restrictions/Additional Instructions: Avoid smoking. Drink plenty of fluids. Take oxhw-qxp-cdgnsyk cough and cold medicine including twice a day Mucinex. Alternate ibuprofen or Tylenol for bodyaches. If you are here worsening please return to the emergency room. If you feel that you need it you may use the albuterol inhaler/nebulizer at home (every4-6 hours as needed for shortness of breath, cough or wheezing). Print Language: Spanish Disposition Disposition: Home, Self Care What to do if you have Problems For any increased pain, shortness of breath, bleeding, nausea or vomiting, chestpain, or any unexpected problems, contact your Primary Care Provider. Call [facility] ([phone]) or report to the closest Emergency Room. Call 911 if necessary. 07/24/24 1013 <Electronically signed by Dot Turk DO> Cosigner Signature (if applicable): CC: No Primary Care Physician ~ Signed [facility] Work Phone: Evaluation note Note Date & Type Note Facility Evaluation note No assessment information availa ble [facility] Work Phone: Reason for referral (narrative) Note Date & Type Note Facility Reason for referral (narrative) No reason for referral information available [facility] Work Phone: Chief Complaint and Reason for Visit Chief Complaint Admit Date congestion July 24, 2024 7:22a m Advance Directives No Advanced Directives Records Found Advance Directive Response Recorded Date/ Time Do you have a Healthcare Power of Actuarial Assistant? No July 24, 2024 7:22am Summary Purpose Family History No Family History Records Found Additional Source Comments Care Teams (unrecognized sec tion and content) Team Status: Active Member Role Status Dates No Primary Care Physician Primary Care Provider Active Team Status: Inactive Member Role Status Dates No Primary Care Physician Primary Care Provider Active Start: July 24, 2024 End: July 24, 2024 Dr. Dot Turk , DO Emergency Provider Active Start: July 24, 2024 End: July 24, 2024 Goals (unrecognized section and content) Goals may be documented in a n alternate section INFORMATION SOURCE (unrecogn ized section and content) DATE CREATED AUTHOR 08/02/2024 [facility] FOR RECORDS PERTAINING TO PATIENTS WHO ARE OR HAVE BEEN ENROLLED IN A CHEMICAL DEPENDENCY/SUBSTANCEABUSE PROGRAM, SOME INFORMATION MAY BE OMITTED. This clinical summary was aggregated from multiple sources. Caution should be exercised in using it in the provision of clinical care. This summary normalizes information from multiple sources, and as a consequence, information in this document may materially change the coding, format and clinical context of patient data. In addition, data may be omitted in some cases. CLINICAL DECISIONS SHOULD BE BASED ON THE PRIMARY CLINICAL RECORDS. [employer] [facility]. provides no warranty or guarantee of the accuracy or completeness of information in this document.
== END 2024-11-28 16:41 | disposition home or self-care (01) ==
PROVIDERS: Emergency Provider Emergency Medicine; Visit Provider Emergency Medicine
DX: K08.89 Other specified disorders of teeth and supporting structures (principal); K04.7 Periapical abscess without sinus; K02.9 Dental caries, unspecified; F17.210 Nicotine dependence, cigarettes, uncomplicated
CPT/HCPCS: 99282

== ENCOUNTER 2024-12-19 14:23 | Emergency (ER) | payer OTHER, SELFPAY ==
[2024-12-19 14:24] VITALS: BP 101/76; PULSE 75; RESP 18; TEMP 36.6; O2SAT 100; BMI 19.8
--- NOTE | 2024-12-19 14:42 | EX.ED.GENINJ ---
HPI History of Present Illness Chief Complaint: Laceration Detail of Chief Complaint: Laceration thenar eminence of left hand Onset/Context/Timing Onset: Hours Mechanism/Context: Incised (hub cutter knife) Location of pain/injuries: Left hand Location: Thenar eminence left hand Current Severity: Mild Maximum Severity: Moderate Worsened by: Initially had more bleeding Relieved by: Nothing Associated Symptoms Associated Symptoms: Negative for Parasthesias or Weakness Narrative Narrative: Patient is a 49-year-old mlmed-puun-zdhbnvhk woman who presents with laceration to thenar eminence of her left hand. She denies paresthesia, anesthesia or motor aches. Patient believes she needs only butterfly stitches. She has no other complaints Prior similar symptoms: No Recent Illness/Hospitalization: No PFSH PFSH Home Medications ?Medication ?Instructions ?Recorded ?Last Taken ?Type NK 12/19/24 Unknown History Allergy/AdvReac Type Severity Reaction Status Date / Time No Known Allergies Allergy Verified 12/19/24 14:24 Social History Smoking Status: Current every day smoker tobacco type: cigarettes ROS ROS ED Integumentary Reports other Details: Laceration left hand Neurologic Neurologic: Denies paresthesias or weakness Hematologic/Lymphatic Hematologic/Lymphatic: Denies easy bleeding or easy bruising EXAM Physical Exam Const Vital Signs: 12/19/24 14:24 Temperature 97.9 F Temperature Source Temporal Pulse Rate 75 Respiratory Rate 18 Blood Pressure 101/76 Blood Pressure Mean 84 Pulse Ox 100 Oxygen Delivery Method Room Air Positive well nourished and well developed General Appearance ED: well developed HEENT atraumatic Eyes PERRL and EOMs intact bilaterally Resp normal respiratory effort Cardio regular rhythm Rate: regular rate Extremity full ROM; Negative for normal to inspection Extremity Narrative: Median, radial and ulnar function intact. There is a linear laceration that is beveled thenar eminence of left hand. Extensor flexor mechanism intact left thumb. She is able to AB duct and adductor against resistance. Capillary refill is normal. Sensation is normal. Neuro oriented x3, CN's II-XII intact bilaterally, no focal motor deficits and no sensory deficits noted Psych mental status grossly normal and thought process normal Skin Skin Narrative: Linear laceration thenar eminence left hand PROC Procedures Other Procedures Procedure(s): Length of laceration 3.4 cm left thenar eminence. Patient was nisi by local filtration. 1.5 cc of 1% lidocaine without epinephrine. Wound was irrigated with 200 cc of normal saline. Simple erupted sutures placed using 5-0 Ethilon. Total of 7 stitches. MDM MDM MDM Narrative Medical decision making narrative: Patient has a laceration which will require repair. It is down to the muscle. Will anesthetize irrigate and suture wound. Please see procedure note in my opinion imaging is not indicated. Discharge Plan Triage Chief Complaint: Laceration ED Provider: Kenrick Rios Dx/Rx/DC Orders Clinical Impression: Laceration of finger of left hand, Tobacco use Instructions: ED Hand Laceration- All Closures Prescriptions: No Action NK Primary Care Provider: Care Physician,No Primary Referrals: Care Physician,No Primary [Primary Care Provider, Medical] Doctor,Your [Non-Staff, None] - 10-14 Days suture removal Activity Restrictions/Additional Instructions: 1. Contact your doctor have stitches removed in 10 to 14 days. 2. Apply bacitracin ointment 2 times a day. Print Language: Luxembourger Disposition Disposition: Home, Self Care
[2024-12-19] MEDS: Lidocaine 1% (20 ml mdv) 20 ML Vial INFILT (14:43)
[2024-12-19 15:18] VITALS: BP 138/68; PULSE 73; RESP 18; TEMP 36.4; O2SAT 99
== END 2024-12-19 15:26 | disposition home or self-care (01) ==
PROVIDERS: Emergency Provider Emergency Medicine; Visit Provider Emergency Medicine
DX: S61.412A Laceration without foreign body of left hand, initial encounter (principal); F17.210 Nicotine dependence, cigarettes, uncomplicated; W26.0XXA Contact with knife, initial encounter
CPT/HCPCS: 12042; 99284